=== PATIENT | male | born 1990 | race African-American/Black ===

== ENCOUNTER 2016-08-22 20:11 | Emergency (ER) | payer BC, OTHER ==
[~2016-08-22] VITALS: Ht 170.2 cm; Wt 77.1 kg
[~2016-08-22 20:11] MED LIST: DOXYCYCLINE 10100 M1 PO; MOBIC15 MG PO; NAPROSYN500 MG PO; ONDANSETRON HCL4 M2 PO; PENICILLIN V P500 MG PO; PREDNISONE50 MG PO; TYLENOL EXTRA500 MG PO; ZANTAC 150MG T150 MG PO; ZOFRAN ODT4 MG PO
[2016-08-22 20:12] VITALS: BP 125/78
== END 2016-08-22 21:01 | disposition home or self-care (01) ==
LOC: ER 20:11
DX: J06.9 Acute upper respiratory infection, unspecified (principal); F41.9 Anxiety disorder, unspecified; F17.210 Nicotine dependence, cigarettes, uncomplicated